=== PATIENT | female | born 1950 | race Asian ===

== ENCOUNTER 2020-06-10 20:18 | Inpatient (IN) | payer OTHER, SELFPAY ==
[~2020-06-10] VITALS: Ht 149.9 cm; Wt 48.1 kg
[2020-06-10 20:18] VITALS: BP_SYST 103
[2020-06-10 21:21] LABS: BASOPHILS # (AUTO) 0.1 K/uL (0.0-0.2); BASOPHILS % (AUTO) 0.5 % (0.0-2.0); HEMATOCRIT 37.9 % (36-48); HEMOGLOBIN 12.2 g/dL (12.0-16.0); LYMPHOCYTES # (AUTO) 0.5 K/uL (1.0-5.5); LYMPHOCYTES % (AUTO) 4.1 % (20.5-51.5); MEAN CORPUSCULAR HEMOGLOBIN 27 pg (27-31); MEAN CORPUSCULAR HGB CONC 32 % (32-36); MEAN CORPUSCULAR VOLUME 85 fL (79.0-98.0); MONOCYTES # (AUTO) 0.4 K/uL (0.0-1.0); MONOCYTES % (AUTO) 3.1 % (1.7-9.3); NEUTROPHILS # (AUTO) 10.8 K/uL (1.8-7.7); NEUTROPHILS % (AUTO) 92.3 % (40.0-70.0); PLATELET COUNT (AUTO) 264 K/uL (130-430); RED BLOOD CELL COUNT(AUTO) 4.46 MIL/uL (4.2-6.2); RED CELL DISTRIBUTION WIDTH 13.1 % (9.0-15.0); WHITE BLOOD COUNT (AUTO) 11.7 K/uL (4.8-10.8)
[2020-06-10] MEDS ORDERED: AZITHROMYCIN 500 MG/VIAL (ZITHROMAX) IV ONE (22:43)
[2020-06-10] MEDS ORDERED: cefTRIAXone 1 GM VIAL ONE (22:44)
[2020-06-11] MEDS: cefTRIAXone 1 GM IVPB PREMIX 50 ML IV SCH (00:18)
[2020-06-11] MEDS: AZITHROMYCIN 500 MG in NS 250 ML IV SCH (00:18)
[2020-06-11] MEDS ORDERED: IPRATROPIUM BROM 0.5 MG/2.5 ML VIAL.NEB (ATROVENT) INH PRN ×2 (06:00→11:00)
[2020-06-11] MEDS ORDERED: ALBUTEROL SULFATE 0.083% 2.5 MG/3 ML VIAL.NEB INH PRN (06:00)
[2020-06-11 06:35] VITALS: BP_SYST 103
[2020-06-11] MEDS ORDERED: IPRATROPIUM BROM 0.5 MG/2.5 ML VIAL.NEB (ATROVENT) INH SCH (07:00)
[2020-06-11] MEDS ORDERED: ALBUTEROL SULFATE 0.083% 2.5 MG/3 ML VIAL.NEB INH SCH (07:00)
[2020-06-11 07:12] LABS: ALANINE AMINOTRANSFERASE 23 U/L (12-78); ALBUMIN 2.3 g/dL (3.4-4.8); ASPARTATE AMINOTRANSFERASE 33 U/L (10-37); CALCIUM 8.6 mg/dL (8.4-11.0); CHLORIDE 100 mmol/L (98-107); CREATININE 0.72 mg/dL (0.55-1.30); GLUCOSE 129 mg/dL (70-99); POTASSIUM 3.3 mmol/L (3.5-5.1); TOTAL BILIRUBIN 0.5 mg/dL (0.0-1.0); UREA NITROGEN, BLOOD 12 mg/dL (8-21)
[2020-06-11 07:18] LABS: SODIUM SERUM 136 mmol/L (136-145)
[2020-06-11 07:29] LABS: ANION GAP 11 (5-15)
[2020-06-11] MEDS: DEXAMETHASONE SOD PHOSPHATE 10 MG/ML VIAL IVP SCH (09:00)
[2020-06-11] MEDS ORDERED: ALBUTEROL MDI INHALATION 8 GM INH INH PRN (10:15)
[2020-06-11] MEDS: HEPARIN SODIUM,PORCINE 5,000 UNITS/ML VIAL SUBCUT SCH ×2 (14:00→22:00)
[2020-06-11] MEDS: ALBUTEROL MDI INHALATION 8 GM INH INH SCH ×3 (15:38→22:52)
[2020-06-11 19:00] VITALS: BP_SYST 113
[2020-06-11 20:00] VITALS: BP_SYST 123
[2020-06-11 21:00] VITALS: BP_SYST 113
[2020-06-11 22:00] VITALS: BP_SYST 102
[2020-06-11 23:00] VITALS: BP_SYST 107
[2020-06-12] VITALS (7 sets, daily range): BP systolic 91–115
[2020-06-12] MEDS: cefTRIAXone 1 GM IVPB PREMIX 50 ML IV SCH ×2 (00:41→22:01)
[2020-06-12] MEDS: AZITHROMYCIN 500 MG in NS 250 ML IV SCH ×2 (00:42→22:01)
[2020-06-12] MEDS: HEPARIN SODIUM,PORCINE 5,000 UNITS/ML VIAL SUBCUT SCH ×3 (06:35→21:04)
[2020-06-12] MEDS: ALBUTEROL MDI INHALATION 8 GM INH INH SCH ×5 (07:00→23:16)
[2020-06-12 08:26] LABS: ALANINE AMINOTRANSFERASE 22 U/L (12-78); ALBUMIN 2.3 g/dL (3.4-4.8); ANION GAP 6 (5-15); ASPARTATE AMINOTRANSFERASE 28 U/L (10-37); CALCIUM 9.9 mg/dL (8.4-11.0); CHLORIDE 104 mmol/L (98-107); CREATININE 0.64 mg/dL (0.55-1.30); GLUCOSE 236 mg/dL (70-99); POTASSIUM 3.7 mmol/L (3.5-5.1); SODIUM SERUM 141 mmol/L (136-145); TOTAL BILIRUBIN 0.3 mg/dL (0.0-1.0); UREA NITROGEN, BLOOD 12 mg/dL (8-21)
[2020-06-12] MEDS: DEXAMETHASONE SOD PHOSPHATE 10 MG/ML VIAL IVP SCH (09:51)
[2020-06-13 04:52] LABS: ALANINE AMINOTRANSFERASE 21 U/L (12-78); ALBUMIN 2.1 g/dL (3.4-4.8); ANION GAP 10 (5-15); ASPARTATE AMINOTRANSFERASE 31 U/L (10-37); CALCIUM 8.7 mg/dL (8.4-11.0); CHLORIDE 106 mmol/L (98-107); CREATININE 0.59 mg/dL (0.55-1.30); GLUCOSE 164 mg/dL (70-99); POTASSIUM 3.7 mmol/L (3.5-5.1); SODIUM SERUM 142 mmol/L (136-145); TOTAL BILIRUBIN 0.4 mg/dL (0.0-1.0); UREA NITROGEN, BLOOD 18 mg/dL (8-21)
[2020-06-13] MEDS: ALBUTEROL MDI INHALATION 8 GM INH INH SCH ×5 (06:00→23:20)
[2020-06-13] MEDS: HEPARIN SODIUM,PORCINE 5,000 UNITS/ML VIAL SUBCUT SCH ×3 (06:00→22:32)
[2020-06-13 07:49] LABS: INR 1.1 (0.8-1.2); PROTHROMBIN TIME 11.4 SECS (9.5-12.5)
[2020-06-13] MEDS: DEXAMETHASONE SOD PHOSPHATE 10 MG/ML VIAL IVP SCH (09:02)
[2020-06-13] MEDS: cefTRIAXone 1 GM IVPB PREMIX 50 ML IV SCH (22:32)
[2020-06-13] MEDS: AZITHROMYCIN 500 MG in NS 250 ML IV SCH (22:33)
[2020-06-14] MEDS: HEPARIN SODIUM,PORCINE 5,000 UNITS/ML VIAL SUBCUT SCH ×2 (05:22→15:46)
[2020-06-14] MEDS: ALBUTEROL MDI INHALATION 8 GM INH INH SCH ×5 (06:00→21:51)
[2020-06-14 07:04] LABS: CALCIUM 8.2 mg/dL (8.4-11.0); CHLORIDE 105 mmol/L (98-107); CREATININE 0.87 mg/dL (0.55-1.30); GLUCOSE 140 mg/dL (70-99); SODIUM SERUM 140 mmol/L (136-145); UREA NITROGEN, BLOOD 15 mg/dL (8-21)
[2020-06-14 07:05] LABS: ALANINE AMINOTRANSFERASE 26 U/L (12-78); ASPARTATE AMINOTRANSFERASE 48 U/L (10-37); TOTAL BILIRUBIN 14.9 mg/dL (0.0-1.0)
[2020-06-14 07:57] LABS: ANION GAP 10 (5-15); POTASSIUM 3.7 mmol/L (3.5-5.1)
[2020-06-14 09:14] VITALS: BP_SYST 107
[2020-06-14] MEDS: DEXAMETHASONE SOD PHOSPHATE 10 MG/ML VIAL IVP SCH (09:23)
[2020-06-15] MEDS: HEPARIN SODIUM,PORCINE 5,000 UNITS/ML VIAL SUBCUT SCH ×4 (00:48→22:00)
[2020-06-15] MEDS: cefTRIAXone 1 GM IVPB PREMIX 50 ML IV SCH (00:48)
[2020-06-15] MEDS: AZITHROMYCIN 500 MG in NS 250 ML IV SCH (01:15)
[2020-06-15] MEDS: ALBUTEROL MDI INHALATION 8 GM INH INH SCH ×5 (07:40→22:00)
[2020-06-15] MEDS ORDERED: ONDANSETRON HCL 4 MG/2 ML VIAL ONE (08:16)
[2020-06-15] MEDS: DEXAMETHASONE SOD PHOSPHATE 10 MG/ML VIAL IVP SCH (08:25)
[2020-06-15] MEDS ORDERED: ONDANSETRON HCL 4 MG/2 ML VIAL IVP PRN (08:30)
[2020-06-15 08:33] LABS: ANION GAP 6 (5-15); ASPARTATE AMINOTRANSFERASE 55 U/L (10-37); CALCIUM 8.2 mg/dL (8.4-11.0); CHLORIDE 107 mmol/L (98-107); CREATININE 0.63 mg/dL (0.55-1.30); GLUCOSE 140 mg/dL (70-99); POTASSIUM 4.4 mmol/L (3.5-5.1); SODIUM SERUM 139 mmol/L (136-145); TOTAL BILIRUBIN 0.4 mg/dL (0.0-1.0); UREA NITROGEN, BLOOD 22 mg/dL (8-21)
[2020-06-15 09:03] LABS: BASOPHILS % (AUTO) 0.1 % (0.0-2.0); HEMATOCRIT 38.6 % (36-48); HEMOGLOBIN 12.4 g/dL (12.0-16.0); LYMPHOCYTES # (AUTO) 0.6 K/uL (1.0-5.5); LYMPHOCYTES % (AUTO) 3.6 % (20.5-51.5); MEAN CORPUSCULAR HEMOGLOBIN 27 pg (27-31); MEAN CORPUSCULAR HGB CONC 32 % (32-36); MEAN CORPUSCULAR VOLUME 85 fL (79.0-98.0); MONOCYTES # (AUTO) 0.4 K/uL (0.0-1.0); MONOCYTES % (AUTO) 2.5 % (1.7-9.3); NEUTROPHILS # (AUTO) 15.6 K/uL (1.8-7.7); NEUTROPHILS % (AUTO) 93.8 % (40.0-70.0); PLATELET COUNT (AUTO) 294 K/uL (130-430); RED BLOOD CELL COUNT(AUTO) 4.53 MIL/uL (4.2-6.2); RED CELL DISTRIBUTION WIDTH 13.2 % (9.0-15.0); WHITE BLOOD COUNT (AUTO) 16.6 K/uL (4.8-10.8)
[2020-06-15 09:50] LABS: ALANINE AMINOTRANSFERASE 45 U/L (12-78)
[2020-06-15 14:30] VITALS: BP_SYST 139
[2020-06-15] MEDS ORDERED: AZITHROMYCIN 500 MG/VIAL (ZITHROMAX) IV ONE (22:49)
[2020-06-15] MEDS ORDERED: cefTRIAXone 1 GM IVPB PREMIX 50 ML IV ONE (22:49)
[2020-06-16] MEDS: AZITHROMYCIN 500 MG in NS 250 ML IV SCH ×2 (00:47→23:36)
[2020-06-16] MEDS: cefTRIAXone 1 GM IVPB PREMIX 50 ML IV SCH ×2 (00:47→23:36)
[2020-06-16] MEDS: HEPARIN SODIUM,PORCINE 5,000 UNITS/ML VIAL SUBCUT SCH ×3 (07:28→23:36)
[2020-06-16] MEDS: ALBUTEROL MDI INHALATION 8 GM INH INH SCH ×5 (07:35→22:00)
[2020-06-16 08:00] VITALS: BP_SYST 115
[2020-06-16] MEDS: DEXAMETHASONE SOD PHOSPHATE 10 MG/ML VIAL IVP SCH (10:00)
[2020-06-16 12:00] VITALS: BP_SYST 125
[2020-06-16 16:00] VITALS: BP_SYST 112
[2020-06-16] MEDS ORDERED: AZITHROMYCIN 500 MG/VIAL (ZITHROMAX) IV ONE (21:54)
[2020-06-17] MEDS: HEPARIN SODIUM,PORCINE 5,000 UNITS/ML VIAL SUBCUT SCH ×3 (06:00→21:58)
[2020-06-17 08:00] VITALS: BP_SYST 121
[2020-06-17] MEDS: DEXAMETHASONE SOD PHOSPHATE 10 MG/ML VIAL IVP SCH (08:13)
[2020-06-17] MEDS: ALBUTEROL MDI INHALATION 8 GM INH INH SCH ×5 (10:22→22:00)
[2020-06-17 10:43] VITALS: BP_SYST 121
[2020-06-17 11:27] LABS: BASOPHILS # (AUTO) 0.1 K/uL (0.0-0.2); BASOPHILS % (AUTO) 0.3 % (0.0-2.0); HEMATOCRIT 38.3 % (36-48); HEMOGLOBIN 12.5 g/dL (12.0-16.0); LYMPHOCYTES # (AUTO) 0.4 K/uL (1.0-5.5); LYMPHOCYTES % (AUTO) 1.8 % (20.5-51.5); MEAN CORPUSCULAR HEMOGLOBIN 28 pg (27-31); MEAN CORPUSCULAR HGB CONC 33 % (32-36); MEAN CORPUSCULAR VOLUME 84 fL (79.0-98.0); MONOCYTES # (AUTO) 0.4 K/uL (0.0-1.0); MONOCYTES % (AUTO) 1.9 % (1.7-9.3); NEUTROPHILS # (AUTO) 20.5 K/uL (1.8-7.7); PLATELET COUNT (AUTO) 262 K/uL (130-430); RED BLOOD CELL COUNT(AUTO) 4.54 MIL/uL (4.2-6.2); RED CELL DISTRIBUTION WIDTH 13.3 % (9.0-15.0); WHITE BLOOD COUNT (AUTO) 21.4 K/uL (4.8-10.8)
[2020-06-17 11:50] LABS: ALANINE AMINOTRANSFERASE 27 U/L (12-78); ALBUMIN 2.2 g/dL (3.4-4.8); ANION GAP 6 (5-15); ASPARTATE AMINOTRANSFERASE 22 U/L (10-37); CALCIUM 8.3 mg/dL (8.4-11.0); CHLORIDE 104 mmol/L (98-107); CREATININE 0.54 mg/dL (0.55-1.30); GLUCOSE 138 mg/dL (70-99); POTASSIUM 4.3 mmol/L (3.5-5.1); SODIUM SERUM 140 mmol/L (136-145); TOTAL BILIRUBIN 0.4 mg/dL (0.0-1.0); UREA NITROGEN, BLOOD 19 mg/dL (8-21)
[2020-06-17 12:00] VITALS: BP_SYST 117
[2020-06-17 17:04] VITALS: BP_SYST 113
[2020-06-17 20:00] VITALS: BP_SYST 133
[2020-06-18] VITALS: BP_SYST 121
[2020-06-18] MEDS: HEPARIN SODIUM,PORCINE 5,000 UNITS/ML VIAL SUBCUT SCH ×3 (06:36→21:40)
[2020-06-18] MEDS: ALBUTEROL MDI INHALATION 8 GM INH INH SCH ×3 (07:20→22:18)
[2020-06-18 08:00] VITALS: BP_SYST 117
[2020-06-18] MEDS: DEXAMETHASONE SOD PHOSPHATE 10 MG/ML VIAL IVP SCH (09:03)
[2020-06-18 12:00] VITALS: BP_SYST 95
[2020-06-18 20:00] VITALS: BP_SYST 106
[2020-06-19] VITALS: BP_SYST 103
[2020-06-19] MEDS: HEPARIN SODIUM,PORCINE 5,000 UNITS/ML VIAL SUBCUT SCH ×3 (06:30→21:22)
[2020-06-19] MEDS: ALBUTEROL MDI INHALATION 8 GM INH INH SCH ×4 (08:11→19:22)
[2020-06-19] MEDS: DEXAMETHASONE SOD PHOSPHATE 10 MG/ML VIAL IVP SCH (08:27)
[2020-06-19 08:34] VITALS: BP_SYST 106
[2020-06-19 12:41] VITALS: BP_SYST 112
[2020-06-19 17:20] VITALS: BP_SYST 160
[2020-06-19 20:00] VITALS: BP_SYST 126
[2020-06-20 01:16] VITALS: BP_SYST 121
[2020-06-20] MEDS: HEPARIN SODIUM,PORCINE 5,000 UNITS/ML VIAL SUBCUT SCH ×3 (05:42→21:33)
[2020-06-20 08:00] VITALS: BP_SYST 98
[2020-06-20 08:31] LABS: BASOPHILS % (AUTO) 0.1 % (0.0-2.0); EOSINOPHILS % (AUTO) 0.2 % (0.0-4.0); HEMATOCRIT 37.5 % (36-48); HEMOGLOBIN 12.1 g/dL (12.0-16.0); LYMPHOCYTES # (AUTO) 1.1 K/uL (1.0-5.5); LYMPHOCYTES % (AUTO) 6.7 % (20.5-51.5); MEAN CORPUSCULAR HEMOGLOBIN 27 pg (27-31); MEAN CORPUSCULAR HGB CONC 32 % (32-36); MEAN CORPUSCULAR VOLUME 85 fL (79.0-98.0); MONOCYTES # (AUTO) 0.5 K/uL (0.0-1.0); MONOCYTES % (AUTO) 3.4 % (1.7-9.3); NEUTROPHILS # (AUTO) 14.3 K/uL (1.8-7.7); NEUTROPHILS % (AUTO) 89.6 % (40.0-70.0); PLATELET COUNT (AUTO) 101 K/uL (130-430); RED BLOOD CELL COUNT(AUTO) 4.44 MIL/uL (4.2-6.2); RED CELL DISTRIBUTION WIDTH 13.4 % (9.0-15.0)
[2020-06-20] MEDS: DEXAMETHASONE SOD PHOSPHATE 10 MG/ML VIAL IVP SCH (08:59)
[2020-06-20 09:15] LABS: ANION GAP 5 (5-15); CALCIUM 8.8 mg/dL (8.4-11.0); CHLORIDE 104 mmol/L (98-107); CREATININE 0.52 mg/dL (0.55-1.30); GLUCOSE 106 mg/dL (70-99); SODIUM SERUM 139 mmol/L (136-145); UREA NITROGEN, BLOOD 22 mg/dL (8-21)
[2020-06-20 12:00] VITALS: BP_SYST 97
[2020-06-20 14:07] VITALS: BP_SYST 97
[2020-06-20] MEDS ORDERED: MV-M1TAB39 PO (15:40)
[2020-06-20] MEDS ORDERED: DORZ10DR10 EACH EYE (15:40)
[2020-06-20] MEDS ORDERED: PEG15DRO5 EACH EYE (15:40)
[2020-06-20] MEDS: ALBUTEROL MDI INHALATION 8 GM INH INH SCH ×3 (16:01→22:00)
[2020-06-20 18:28] VITALS: BP_SYST 102
[2020-06-20 20:00] VITALS: BP_SYST 111
[2020-06-21] VITALS: BP_SYST 108
[2020-06-21] MEDS: ALBUTEROL MDI INHALATION 8 GM INH INH SCH ×5 (05:51→22:00)
[2020-06-21] MEDS: HEPARIN SODIUM,PORCINE 5,000 UNITS/ML VIAL SUBCUT SCH ×3 (05:52→22:00)
[2020-06-21 07:56] LABS: ALANINE AMINOTRANSFERASE 37 U/L (12-78); ALBUMIN 2.3 g/dL (3.4-4.8); ANION GAP 8 (5-15); ASPARTATE AMINOTRANSFERASE 24 U/L (10-37); CHLORIDE 103 mmol/L (98-107); CREATININE 0.55 mg/dL (0.55-1.30); GLUCOSE 102 mg/dL (70-99); SODIUM SERUM 140 mmol/L (136-145); TOTAL BILIRUBIN 0.7 mg/dL (0.0-1.0); UREA NITROGEN, BLOOD 21 mg/dL (8-21)
[2020-06-21] MEDS: DORZOLAMIDE HCL/TIMOLOL MAL. 10 ML EYE DROPS (COSOPT) EACH EYE SCH (08:50)
[2020-06-21] MEDS: DEXAMETHASONE SOD PHOSPHATE 10 MG/ML VIAL IVP SCH (08:50)
[2020-06-21] MEDS: PEG 400/HYPROMELLOSE/GLYCERIN 15 ML DROPS EACH EYE SCH (08:50)
[2020-06-21] MEDS: [UNRECOGNIZED DRUG - OTHER] PO SCH (09:00)
[2020-06-21] MEDS ORDERED: [UNRECOGNIZED DRUG - OTHER] PO SCH (09:00)
[2020-06-21 11:04] LABS: BASOPHILS % (AUTO) 0.1 % (0.0-2.0); EOSINOPHILS % (AUTO) 0.1 % (0.0-4.0); HEMATOCRIT 42.5 % (36-48); HEMOGLOBIN 13.7 g/dL (12.0-16.0); LYMPHOCYTES % (AUTO) 5.7 % (20.5-51.5); MEAN CORPUSCULAR HEMOGLOBIN 28 pg (27-31); MEAN CORPUSCULAR HGB CONC 32 % (32-36); MEAN CORPUSCULAR VOLUME 86 fL (79.0-98.0); MONOCYTES # (AUTO) 0.6 K/uL (0.0-1.0); MONOCYTES % (AUTO) 3.5 % (1.7-9.3); NEUTROPHILS # (AUTO) 16.1 K/uL (1.8-7.7); NEUTROPHILS % (AUTO) 90.6 % (40.0-70.0); PLATELET COUNT (AUTO) 52 K/uL (130-430); RED BLOOD CELL COUNT(AUTO) 4.96 MIL/uL (4.2-6.2); RED CELL DISTRIBUTION WIDTH 13.5 % (9.0-15.0); WHITE BLOOD COUNT (AUTO) 17.8 K/uL (4.8-10.8)
[2020-06-21 11:11] LABS: ERYTHROCYTE SEDIMENTATION RATE 13 MM/HR (0-20)
[2020-06-21 11:38] LABS: C-REACTIVE PROTEIN QUANT 1.4 mg/dL (0-0.5)
[2020-06-21 12:00] VITALS: BP_SYST 121
[2020-06-21 16:00] VITALS: BP_SYST 110
[2020-06-21 20:00] VITALS: BP_SYST 100
[2020-06-22] VITALS: BP_SYST 108
[2020-06-22] MEDS: HEPARIN SODIUM,PORCINE 5,000 UNITS/ML VIAL SUBCUT SCH ×3 (06:00→21:09)
[2020-06-22 08:00] VITALS: BP_SYST 114
[2020-06-22] MEDS: ALBUTEROL MDI INHALATION 8 GM INH INH SCH ×2 (08:40→21:29)
[2020-06-22] MEDS: DEXAMETHASONE SOD PHOSPHATE 10 MG/ML VIAL IVP SCH (08:54)
[2020-06-22] MEDS: [UNRECOGNIZED DRUG - OTHER] PO SCH (09:00)
[2020-06-22] MEDS: DORZOLAMIDE HCL/TIMOLOL MAL. 10 ML EYE DROPS (COSOPT) EACH EYE SCH (09:00)
[2020-06-22] MEDS: PEG 400/HYPROMELLOSE/GLYCERIN 15 ML DROPS EACH EYE SCH (09:00)
[2020-06-22 12:00] VITALS: BP_SYST 100
[2020-06-22 18:03] VITALS: BP_SYST 111
[2020-06-22 20:00] VITALS: BP_SYST 99
[2020-06-23 01:47] VITALS: BP_SYST 95
[2020-06-23] MEDS: HEPARIN SODIUM,PORCINE 5,000 UNITS/ML VIAL SUBCUT SCH (05:36)
[2020-06-23 08:28] VITALS: BP_SYST 102
[2020-06-23] MEDS: PEG 400/HYPROMELLOSE/GLYCERIN 15 ML DROPS EACH EYE SCH (08:31)
[2020-06-23] MEDS: DORZOLAMIDE HCL/TIMOLOL MAL. 10 ML EYE DROPS (COSOPT) EACH EYE SCH (08:31)
[2020-06-23] MEDS: DEXAMETHASONE SOD PHOSPHATE 10 MG/ML VIAL IVP SCH (08:32)
[2020-06-23] MEDS: [UNRECOGNIZED DRUG - OTHER] PO SCH (08:32)
[2020-06-23] MEDS: ALBUTEROL MDI INHALATION 8 GM INH INH SCH ×5 (08:40→22:00)
[2020-06-23 12:00] VITALS: BP_SYST 109
[2020-06-23 12:20] VITALS: BP_SYST 109
[2020-06-23 16:00] VITALS: BP_SYST 135
[2020-06-23 22:47] VITALS: BP_SYST 103; BP_SYST 165
[2020-06-24] VITALS (7 sets, daily range): BP systolic 91–123
[2020-06-24] MEDS: ALBUTEROL MDI INHALATION 8 GM INH INH SCH ×5 (06:10→22:00)
[2020-06-24] MEDS: PEG 400/HYPROMELLOSE/GLYCERIN 15 ML DROPS EACH EYE SCH (08:40)
[2020-06-24] MEDS: DEXAMETHASONE SOD PHOSPHATE 10 MG/ML VIAL IVP SCH (08:40)
[2020-06-24] MEDS: [UNRECOGNIZED DRUG - OTHER] PO SCH (08:40)
[2020-06-24] MEDS: DORZOLAMIDE HCL/TIMOLOL MAL. 10 ML EYE DROPS (COSOPT) EACH EYE SCH (08:41)
[2020-06-25 00:23] VITALS: BP_SYST 117
== END 2020-06-25 02:23 | disposition short-term general hospital (02) | DRG 871 ==
LOC: SED 20:18 → STU 22:33 → SIC 06-11 04:13 → STU 06-15 08:20
PROVIDERS: ADMIT Internal Medicine Hospice and Palliative Medicine; ATTEND Internal Medicine Hospice and Palliative Medicine
PROC: XW033E5 Introduction of Remdesivir Anti-infective into Peripheral Vein, Percutaneous Approach, New Technology Group 5 (ICD-10-PCS; 2020-06-11)
PROC: 5A09357 Assistance with Respiratory Ventilation, Less than 24 Consecutive Hours, Continuous Positive Airway Pressure (ICD-10-PCS; principal; 2020-06-13)
DX: A41.9 Sepsis, unspecified organism (principal); U07.1 COVID-19; J12.82 Pneumonia due to coronavirus disease 2019; J80 Acute respiratory distress syndrome; E43 Unspecified severe protein-calorie malnutrition; R73.9 Hyperglycemia, unspecified; E83.51 Hypocalcemia; E88.09 Other disorders of plasma-protein metabolism, not elsewhere classified; R53.81 Other malaise; D69.6 Thrombocytopenia, unspecified; Z98.49 Cataract extraction status, unspecified eye; Z79.899 Other long term (current) drug therapy; Z68.21 Body mass index [BMI] 21.0-21.9, adult
CPT/HCPCS: 36415; 36600; 71045; 80048; 80053; 82803-TC; 83880; 84484; 85025; 85610-TC; 85651-TC; 85730-TC; 86140; 87040-TC; 94640; 94760; 97110-GP; 97116-GP; 97530-GP; 99291; G0378; J0456; J0696; J1100; J1644; J2405; J7050